=== PATIENT | male | born 1985 | race Caucasian/White ===

== ENCOUNTER 2016-07-21 05:13 | Emergency (ER) | payer OTHER ==
[2016-07-21] MEDS ORDERED: TERBUTALINE SULFATE 5 MG TAB PO ONE (05:44)
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
== END 2016-07-21 06:28 | disposition home or self-care (01) ==
DX: N48.30 Priapism, unspecified (principal)

== ENCOUNTER 2016-10-22 18:41 | Emergency (ER) | payer OTHER ==
[2016-10-22 19:09] VITALS: TEMP 97.7
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
[2016-10-22 20:12] VITALS: BP 125/73; PULSE 74; RESP 14; O2SAT 95
== END 2016-10-22 20:01 | disposition home or self-care (01) ==
DX: S52.614A Nondisplaced fracture of right ulna styloid process, initial encounter for closed fracture (principal); W05.0XXA Fall from non-moving wheelchair, initial encounter
CPT/HCPCS: L3908

== ENCOUNTER 2017-11-07 14:37 | Emergency (ER) | payer OTHER ==
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
[2017-11-07] MEDS ORDERED: NS 1,000 ML IV ONE (15:17)
[2017-11-07] MEDS ORDERED: HYDROmorphONE/DILAUDID 2 MG/ML INJ IVP ONE ×2 (15:17→17:00)
[2017-11-07 15:40] LABS: PLATELET COUNT 276 10^3/uL (150-400)
[2017-11-07] MEDS ORDERED: KETOROLAC 15 MG/1 ML SDV IVP ONE (16:04)
[2017-11-07] MEDS ORDERED: LIDOCAINE 4%/MENTHOL 1% PATCH TD ONE (16:04)
[2017-11-07] MEDS ORDERED: GABAPENTIN 300 MG CAP PO ONE (16:08)
[2017-11-07] MEDS ORDERED: CYCLOBENZAPRINE 10MG PREPACK#3 BTL TAKEHOME ONE (18:09)
[2017-11-07] MEDS ORDERED: NITROFURANTOIN 100MG PREPACK#2 BTL TAKEHOME ONE ×2 (18:09)
[2017-11-07] MEDS ORDERED: DEXAMETHASONE 4 MG TAB PO ONE (18:09)
[2017-11-07] MEDS ORDERED: OXYCODONE/APAP 5/325MG PREPACK#4 BTL TAKEHOME ONE (18:09)
[2017-11-07 18:40] VITALS: BP 129/88
[2017-11-07] MEDS ORDERED: PATCH REMOVAL 1 EA PATCH TD SCH (21:00)
== END 2017-11-07 18:41 | disposition home or self-care (01) ==
DX: R82.90 Unspecified abnormal findings in urine (principal); M54.5 Low back pain; R10.9 Unspecified abdominal pain; E86.9 Volume depletion, unspecified; N39.498 Other specified urinary incontinence; G89.29 Other chronic pain; G82.20 Paraplegia, unspecified; Z87.440 Personal history of urinary (tract) infections; Z96.9 Presence of functional implant, unspecified
CPT/HCPCS: 96374; J1170; J1885

== ENCOUNTER 2017-12-03 15:48 | Emergency (ER) | payer OTHER ==
[2017-12-03 15:56] VITALS: BP 130/66
[2017-12-03] MEDS ORDERED: oxyCODONE IR 5 MG TAB PO ONE (16:56)
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
== END 2017-12-03 18:06 | disposition home or self-care (01) ==
DX: T85.192A Other mechanical complication of implanted electronic neurostimulator of spinal cord electrode (lead), initial encounter (principal)

== ENCOUNTER 2018-04-21 22:32 | Observation (INO) | payer OTHER ==
[2018-04-21] MEDS ORDERED: NS 1,000 ML IV ONE (23:05)
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
[2018-04-21] MEDS ORDERED: fentaNYL 100 MCG/2 ML INJ IVP ONE (23:49)
[2018-04-22] MEDS ORDERED: PROMETHAZINE HCL 25 MG TAB PO PRN (01:34)
[2018-04-22] MEDS ORDERED: ACETAMINOPHEN 325 MG TAB PO PRN (01:34)
[2018-04-22] MEDS ORDERED: PROMETHAZINE HCL 25 MG/ML INJ IVP PRN (01:34)
[2018-04-22] MEDS ORDERED: LORazepam 0.5 MG TAB PO PRN (01:34)
[2018-04-22] MEDS ORDERED: POLYETHYLENE GLYCOL 3350 17 GM PKT PO PRN (01:37)
[2018-04-22] MEDS ORDERED: BISACODYL 10 MG SUPP PR PRN (01:37)
[2018-04-22] MEDS ORDERED: MAGNESIUM HYDROXIDE 30 ML UDCUP PO PRN (01:37)
[2018-04-22] MEDS ORDERED: LACTULOSE 20 GM/30 ML UDCUP PO PRN (01:37)
[2018-04-22] MEDS ORDERED: CYCLOBENZAPRINE 10 MG TAB PO PRN (01:39)
[2018-04-22] MEDS ORDERED: fentaNYL 100 MCG/2 ML INJ IVP ONE (02:26)
[2018-04-22] MEDS: SENNOSIDES/DOCUSATE SODIUM TAB PO SCH ×2 (02:46→10:43)
[2018-04-22] MEDS ORDERED: BACLOFEN 10 MG TAB PO PRN (03:26)
[2018-04-22] MEDS ORDERED: PREGABALIN 150 MG CAP PO ONE (04:30)
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
[2018-04-22] MEDS: ENOXAPARIN 40 MG/0.4 ML SYR SC SCH (10:09)
[2018-04-22] MEDS ORDERED: METHYLNALTREXONE BROMIDE 12 MG/0.6 ML INJ SC ONE (10:38)
--- NOTE | 2018-04-22 10:39 | ASMTCMCOM ---
CM Note CM Note Notes: Pt is a 32 yo M, presents with constipation. Pt has parapelegia. Lives independently, reports no concerns with care at this time. CM anticipates pt will be discharged independently. CM available if needs may arise. Plan: Independent Date Signed: 04/22/2018 10:25 AM Electronically Signed By:ROSIBEL Chen
[2018-04-22] MEDS: DIAZEPAM 5 MG TAB PO SCH ×3 (11:28→21:08)
[2018-04-22] MEDS ORDERED: IBUPROFEN 800 MG TAB PO PRN (11:44)
--- NOTE | 2018-04-22 12:42 | WOCRNPDOC ---
WOCRN Advanced Assessment Note - Skin Integrity Problem, Advanced Assess Left Lateral Foot Pressure Injury Dressing Type: Collagen (gera; per patient report), Telfa Dressing Description: Clean/Dry, Intact Exudate Amount: Scant Exudate Characteristic(s): Serosanguinous Integumentary Issue Intervention: Visualized Under Dressing Beverly Wound Tissue: Scarred, Calloused Wound Bed Constitution: Granulation Tissue (100%) Wound Edges: Epithelizing, Attached Site Measurement - Head-to-Toe Length X Width X Depth (cm): 0.8x0.6x0.2 Pressure Injury Stage: Stage 3 Pressure Injury Present on Admit: Yes Skin Integrity Problem Comment: Chronic wound that is treated at home by patient and his . No evidence of infection. Will continue use of collagen here and encourage use of offloading boots, although patient reports not liking them. Wound care will follow. Right Lateral Pedal Foot Pressure Injury Dressing Type: Open to Air Wound Bed Constitution: Stable Eschar (100%) Site Measurement - Head-to-Toe Length X Width X Depth (cm): 0.3x0.3x0 Pressure Injury Stage: Unstageable Pressure Injury Present on Admit: Yes Skin Integrity Problem Comment: No concerns. Please leave [employer]. Discussed care plan with patient and . All questions answered. Right Lateral Foot Pressure Injury Dressing Type: Open to Air Wound Bed Constitution: Healed Pressure Injury Stage: Stage 3 Pressure Injury Present on Admit: Yes Right First Toe Dressing Type: Open to Air Wound Bed Constitution: Scab Skin Integrity Problem Comment: Patient reports picking at his toe. Wound RN recommends patient to see podiatry professor if he has concerns about a hang nail rather than picking at it. Wound care will not follow this wound.
[2018-04-22] MEDS: DULoxetine 60 MG CAP PO SCH (13:07)
[2018-04-22] MEDS: ARIPiprazole 2 MG TAB PO SCH (13:07)
[2018-04-22] MEDS: BACLOFEN 10 MG TAB PO SCH ×3 (13:09→21:09)
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
[2018-04-22] MEDS: ADDERALL 10 MG TAB PO SCH (14:21)
[2018-04-22] MEDS ORDERED: BISACODYL 5 MG EC TAB PO ONE ×2 (14:21→19:15)
[2018-04-22] MEDS ORDERED: POLYETHYLENE GLYCOL 3350 17 GM PKT PO ONE ×2 (14:23→19:15)
--- NOTE | 2018-04-22 15:01 | PDCONSULT ---
Manifest Clerk Note: [email or web address] p: f: REFERRING PHYSICIAN: I was asked to see the patient in consultation by Dr. Andrew Reynoso for a chief complaint of constipation HISTORY OF PRESENT ILLNESS: Marvel Almeida is a 32-year-old male with T1 paraplegia who presents with 5 days of constipation. Typically he does rectal stimulation daily, every morning, and has a satisfactory evacuation. Over the last 5 days he has adjusted his opioid pain medication and has developed constipation. He has been unable to defecate despite rectal stimulation. This causes a tendon a 10 diffuse abdominal pain above the level of his belly button , where he can feel. He is very frustrated with his care. He wants to know for certain what ever has tried will result in a bowel movement. In the past he has tried Relistor injection and that has usually produced a bowel movement. He denies being on any consistent MiraLax, senna, bisacodyl, Movantik or any other of the irritable bowel constipation medications such as Linzess. The ER performed a soapsuds enema which did not produce a bowel movement. The patient is slightly resistant to enema therapy due to lack of improvement with the soapsuds enema. PAST MEDICAL HISTORY: Paraplegia, constipation, opioid use PAST SURGICAL HISTORY: Right wrist surgery as well as T-spine repair in 2017, 2018 spinal hardware removal, implantable nerve stimulator HOME MEDICATIONS: Relistor 450 mg p.r.n., Cymbalta 60 mg daily, baclofen 10 mg p.o. Three times daily, trazodone 50 mg at bedtime, pregabalin 200 mg three times daily, Abilify 2 mg p. O. Daily, oxycodone 10 mg Q 6 p.r.n. Pain, Valium 10 mg p.o. Three times daily INPATIENT MEDICATIONS: Trazodone 50 mg p.o. At bedtime, pre gabapentin 200 mg three times daily, robust or 12 mg subcutaneous once, enoxaparin 40 mg subcutaneous daily, Cymbalta 60 mg p.o. Daily, Valium 10 mg p.o. Three times daily, Flexeril 10 mg p.o. Three times daily p.r.n., baclofen 10 mg p.o. Three times daily, Abilify 2 mg p.o. Daily ALLERGIES: NKDA FAMILY HISTORY: no family history of colon cancer SOCIAL HISTORY: ROS: I have performed a comprehensive review of systems, which is negative except for pertinent positives and/or pertinent negatives as noted above in the HPI PHYSICAL EXAM: Vitals temperature 36.7 HR 86 20 131/74 95% on RA CONSTITUTIONAL: alert, unwell appearing MENTAL STATUS: alert, oriented to person, place and time PSYCH: Angry mood, labile EYES: pupils equal and reactive extra ocular eye movements intact EARS: right and left ear normal NOSE: normal and patent, no erythema, discharge or polyps MOUTH: mucous membranes moist, pharynx normal without lesions, Mallampati I HEAD: normal NECK: supple, no significant adenopatchy CHEST: clear to auscultation, no wheezes, rales or rhonchi, symmetric air entry CARDIOVASCULAR: normal rate, regular rhythm, normal S1,S2, no murmurs, rubs, clicks or gallops GASTROINTESTINAL: soft distended tympanic tender to light palpation. RYAN NOT PERFORMED NEUROLOGICAL: alert, paraplegia SKIN: normal coloration and turgor, no rashes, no suspicious skin lesions CURRENT DATA: IMAGING: Date 04/21/2018 X-ray Nonspecific bowel gas pattern without evidence of obstruction, moderate amount of fecal material in the colon compatible with constipation ENDOSCOPY: none previously ASSESSMENT: Marvel Almeida is a 32-year-old male with T1 paraplegia and chronic constipation which is multifactorial including neurogenic bowel, medication induced with both opioids and baclofen as well as he is not on any other bowel regimen except for rectal stimulation and p.r.n.Relistor. We discussed a clean out while in the hospital which will include 10 mg of Dulcolax followed by 32 oz of Gatorade/119 g of MiraLax. He will sit on the toilet or do rectal stimulation after each of these doses to see if we can produce a bowel movement. We discussed that he will likely need to go home on MiraLax, Dulcolax and or a daily opioid inhibitor such as Relistor or Movantik. The rectal exam was not performed today, review of his abdominal imaging does not reveal obstruction or fecal impaction. RECOMMENDATIONS: -Clean out: 10 mg dulcolax followed by 32 oz of Gatorade/119 g of MiraLax, repeat cycle every 2-3 hours if not producing a bowel movement -Patient to sit on toilet and/or perform rectal stimulation tonight after 1-2 rounds of the laxative -Discussed may need enema therapy in the future -Does not seem to need a fecal disimpaction at this time -Thank you for this consultation Sincerely, Mariola Gaspar MD [facility] could begin
[2018-04-22] MEDS: PREGABALIN 100 MG CAP PO SCH ×2 (18:40→21:08)
[2018-04-22] MEDS ORDERED: oxyCODONE IR 5 MG TAB PO ONE (21:48)
[2018-04-23] MEDS: traZODone 50 MG TAB PO SCH ×2 (03:05→21:02)
[2018-04-23] MEDS ORDERED: BISACODYL 5 MG EC TAB PO ONE (08:00)
[2018-04-23] MEDS: DIAZEPAM 5 MG TAB PO SCH ×3 (08:08→21:02)
[2018-04-23] MEDS: ENOXAPARIN 40 MG/0.4 ML SYR SC SCH (08:08)
[2018-04-23] MEDS: BACLOFEN 10 MG TAB PO SCH ×3 (08:08→21:02)
[2018-04-23] MEDS: DULoxetine 60 MG CAP PO SCH (08:08)
[2018-04-23] MEDS: ADDERALL 10 MG TAB PO SCH ×2 (08:08→15:29)
[2018-04-23] MEDS: ARIPiprazole 2 MG TAB PO SCH (08:08)
[2018-04-23] MEDS ORDERED: POLYETHYLENE GLYCOL 3350 17 GM PKT PO SCH (09:00)
--- NOTE | 2018-04-23 09:47 | SOAPPROG ---
SOAP Progress Note Assessment/Plan: Assessment: 32 year old male with T1 paraplegia, opioid use presenting with constipation with some improvement after 20 mg bisacodyl, 236 gram Miralax 64 ounces of gatorade. Stool burden in colon per last X ray not fecal impaction. Previous soap suds enema did not help Plan: 1. Change to clear liquids diet 2. 4 L Golytely - please document time when finished 3. Two tap water enemas 2 hours after drinks Golytely if no bowel movement 4. Repeat dose of 12 mg SQ of methylaltrexone today 5. If no bowel movement will order KUB to assess for stool burden 6. May require digital or colonoscopic disimpaction under sedation if no improvement after above Mariola Gaspar MD 04/23/18 10:20 Subjective: small amount of smearing stool, not a large evacuation, patient very frustrated , "why can't you do what [facility] does" Objective: Vital Signs Temp Pulse Resp BP Pulse Ox 36.4 C 75 16 113/60 95 04/23/18 07:23 04/23/18 07:23 04/23/18 07:23 04/23/18 07:23 04/23/18 07:23 04/22/18 04/23/18 04/24/18 05:59 05:59 05:59 Intake Total 1600 2730 Output Total 450 Balance 1150 2730 Physical Exam - Physical Exam General Appearance: alert Respiratory: chest non-tender, lungs clear Cardiac/Chest: regular rate, rhythm Abdomen: soft, distended, other (tender to palpation of epigastric region) Skin: normal color ICD10 Worksheet Patient Problems: Problems Problem Status Onset Constipation Acute Back pain Acute Fracture of ulnar styloid Acute Possible urinary tract infection Acute Urinary incontinence Acute
[2018-04-23] MEDS: PREGABALIN 100 MG CAP PO SCH ×3 (09:57→21:02)
[2018-04-23] MEDS ORDERED: PEG 3350/NA SULF,BICARB,CL/KCL (GAVILYTE-G) 4000 ML BTL PO ONE (09:57)
[2018-04-23] MEDS ORDERED: METHYLNALTREXONE BROMIDE 12 MG/0.6 ML INJ SC ONE (10:19)
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
[2018-04-24] MEDS: PREGABALIN 100 MG CAP PO SCH (09:04)
[2018-04-24] MEDS: ENOXAPARIN 40 MG/0.4 ML SYR SC SCH (09:04)
[2018-04-24] MEDS: DULoxetine 60 MG CAP PO SCH (09:05)
[2018-04-24] MEDS: BACLOFEN 10 MG TAB PO SCH (09:06)
[2018-04-24] MEDS: ADDERALL 10 MG TAB PO SCH (09:07)
[2018-04-24] MEDS: ARIPiprazole 2 MG TAB PO SCH (09:08)
[2018-04-24] MEDS: DIAZEPAM 5 MG TAB PO SCH (09:10)
--- NOTE | 2018-04-24 09:30 | SOAPPROG ---
SOAP Progress Note Assessment/Plan: Assessment: 32-year-old male with T1 paraplegia, opiate use, constipation s/p a clean-out after attempted 4 L of GoLYTELY. Patient only able to complete 2 L of GoLYTELY and had several bowel movements. Recommend discharge with a new bowel regimen dictated below. Plan: 1.MiraLAX 1 capful in 8 ounces once or twice a day - patient prefers once per day 2.Dulcolax 10 mg by mouth daily 3.Relistor 450 mg po once daily or Relistor 12 mg SQ daily PRN constipation - patient prefers not to do daily 4.Daily rectal stimulation for evacuation 5.Xray ordered mainly for patient satisfaction to confirm improved bowel burden 6.Discharge to home after X ray Thank you for this consultation, Mariola Gaspar MD 04/24/18 09:27 Objective: Vital Signs Temp Pulse Resp BP Pulse Ox 36.7 C 83 16 109/72 92 04/24/18 04:00 04/24/18 04:00 04/24/18 04:00 04/24/18 04:00 04/24/18 04:00 04/23/18 04/24/18 04/25/18 05:59 05:59 05:59 Intake Total 2730 900 Balance 2730 900 Physical Exam - Physical Exam General Appearance: alert, no apparent distress Respiratory: chest non-tender, lungs clear Cardiac/Chest: regular rate, rhythm Abdomen: normal bowel sounds, non-tender, soft Skin: normal color Neuro/Psych: alert ICD10 Worksheet Patient Problems: Problems Problem Status Onset Constipation Acute Back pain Acute Fracture of ulnar styloid Acute Possible urinary tract infection Acute Urinary incontinence Acute
[2018-04-24 12:15] VITALS: BP 121/71
--- NOTE | 2018-04-24 14:14 | HOSPPROG ---
Hospitalist Progress Note Assessment/Plan: 32 yo M w paraplegia, constipation home today see dc summary Subjective: moved bowels. film OK Objective: Vital Signs Temp Pulse Resp BP Pulse Ox 36.7 C 102 H 14 121/71 H 94 04/24/18 12:00 04/24/18 12:00 04/24/18 12:00 04/24/18 12:00 04/24/18 12:00 04/23/18 04/24/18 04/25/18 05:59 05:59 05:59 Intake Total 2730 900 Balance 2730 900 - Physical Exam Constitutional: no apparent distress Eyes: PERRL Ears, Nose, Mouth, Throat: moist mucous membranes Cardiovascular: regular rate and rhythym Respiratory: no respiratory distress Gastrointestinal: normoactive bowel sounds Genitourinary: no bladder fullness Skin: warm ICD10 Worksheet Patient Problems: Problems Problem Status Onset Constipation Acute Back pain Acute Fracture of ulnar styloid Acute Possible urinary tract infection Acute Urinary incontinence Acute
--- NOTE | 2018-04-24 14:29 | GDS ---
[f rep st] DISCHARGE SUMMARY DISCHARGE DIAGNOSES: 1. Severe constipation. 2. T10 paraplegia. Please see admission history and physical by Dr. Aniya Tamez. The patient presented with constipati on x5 days. This was confirmed by abdominal film. He received MiraLAX, Dulcolax, and enema with mov ement of his bowels with resolution of his constipation as seen by GI who directed the plan. Repeat abdominal films showed no evidence of constipation. He was discharged on daily Dulcolax, daily Kvng AX, p.r.n. Relistor, provided with prescriptions. Greater than 30 minutes spent on the discharge. /[id number]/MODL
--- NOTE | 2018-04-24 15:50 | ASDISCHSUM ---
Discharge Information Plan Status: Medically Cleared to Leave:04/23/2018 Discharge Date:04/24/2018 03:33 PM CM D/C Disposition:Home, Routine, Self-Care ADT D/C Disposition:Home, Routine, Self-Care Projected Discharge Date:04/24/2018 12:00 AM Transportation at D/C:Family Discharge Delay Reason: Follow-Up Date:04/24/2018 12:00 AM Discharge Slot:2 - 12:01 pm - 18:00 pm Final Diagnosis:Constipation Placement Information Patient Contact Information Contact Name:PRATIMA Relationship:Father Address:[address] Work Phone: City:[place] Alternate Phone: [facility]/Zip Code:[place] [address] Email: Financial Information Financial Class:BCOP Primary Plan Desc:[facility] Primary Plan Number:[id number] Secondary Plan Desc: Secondary Plan Number: Assessment Information [facility] CM Progress Note CM Note CM Note Notes: Pt is a 32 yo M, presents with constipation. Pt has parapelegia. Lives independently, reports no concerns with care at this time. CM anticipates pt will be discharged independently. CM available if needs may arise. Plan: Independent Date Signed: 04/22/2018 10:25 AM Electronically Signed By:ROSIBEL Chen Case Management Discharge Plan Note Case Management Discharge Discharge Order Complete? Answers: Yes Patient to Obtain Answers: via Family Medications Transportation Arranged Answers: Family/Friends Discharge Comments Notes: Patient to discharge independent to home with support of family. CM available to follow if any additional CM needs arise. Date Signed: 04/24/2018 03:49 PM Electronically Signed By:Bhavya J Pless Intervention Information
== END 2018-04-24 15:33 | disposition home or self-care (01) ==
LOC: F1N 04-22 03:18
PROVIDERS: ADMIT Family Medicine; ATTEND Internal Medicine
DX: K59.03 Drug induced constipation (principal); G82.20 Paraplegia, unspecified; E86.9 Volume depletion, unspecified; S24.103S Unspecified injury at T7-T10 level of thoracic spinal cord, sequela; V86.56XS Driver of dirt bike or motor/cross bike injured in nontraffic accident, sequela; G89.29 Other chronic pain; F11.20 Opioid dependence, uncomplicated; K59.2 Neurogenic bowel, not elsewhere classified; Z96.9 Presence of functional implant, unspecified
CPT/HCPCS: 74018; 74019; G0378; 96374; J1650; J2212; J3010

== ENCOUNTER → 2018-05-30 | Outpatient (CLI) | payer OTHER | LOC: FIMAGING 10:24 | PROVIDERS: ATTEND Internal Medicine | DX: M43.8X5 Other specified deforming dorsopathies, thoracolumbar region (principal); M48.04 Spinal stenosis, thoracic region; G82.20 Paraplegia, unspecified ==

== ENCOUNTER 2018-07-21 12:30 | Emergency (ER) | payer OTHER ==
--- NOTE | 2018-07-21 12:57 | EDPHY ---
H & P Stated Complaint: c/o fever/variation in urine color x 2 days, thinks poss uti Time Seen by Provider: 07/21/18 12:56 HPI/ROS: CHIEF COMPLAINT: Fever, change in urinary collar, more frequent self cathing HISTORY OF PRESENT ILLNESS: The patient has a history of spinal cord injury and neurogenic bladder. The patient does self cath. He presents to the ED with complaints of fever, malaise, malodorous urine and urinary spasms. The patient did have a Botox injection procedure performed to his bladder approximately week ago. The patient denies acute abdominal pain but is somewhat insensate secondary to his underlying spinal cord injury. The patient denies any cough, vomiting or diarrhea. The patient has not had a prior history of urinary tract infection. The patient denies additional acute complaints. REVIEW OF SYSTEMS: A comprehensive 10 point review of systems is otherwise negative aside from elements mentioned in the history of present illness. Source: Patient - Medical/Surgical History Hx Asthma: No Hx Chronic Respiratory Disease: No Hx Diabetes: No Hx Cardiac Disease: No Hx Renal Disease: No Hx Cirrhosis: No Hx Alcoholism: No Hx HIV/AIDS: No Hx Splenectomy or Spleen Trauma: No Other PMH: fx spine 03/2016, T-10 SPINAL CORD INJURY, spinal hardware removal 2018. r wrist fx 03/19 - Social History Smoking Status: Never smoked - Physical Exam Exam: General Appearance: Alert, no distress Eyes: Pupils equal and round no pallor or injection ENT, Mouth: Mucous membranes moist Respiratory: There are no retractions, lungs are clear to auscultation Cardiovascular: Regular rate and rhythm Gastrointestinal: Abdomen is soft and nontender, no masses, bowel sounds normal Neurological: Paraplegic secondary to spinal cord injury Skin: Warm and dry, no rashes Musculoskeletal: Neck is supple nontender Extremities: symmetrical, full range of motion Constitutional: Initial Vital Signs Temperature (C) 37.1 C 07/21/18 12:35 Heart Rate 94 07/21/18 12:35 Respiratory Rate 18 07/21/18 12:35 Blood Pressure 139/84 H 07/21/18 12:35 O2 Sat (%) 94 07/21/18 12:35 O2 Delivery Mode Room Air Allergies/Adverse Reactions: nitrofurantoin Allergy (Verified 07/21/18 12:39) Home Medications: Medication Instructions Recorded ARIPiprazole [Abilify 2 mg (*)] 2 mg PO DAILY 08/22/17 Amphet Asp and D/Amphet [Adderall 10 mg PO BID@09,14 10/22/16 10 MG (*)] Diazepam [Valium 10 MG (*)] 10 mg PO TID 10/22/16 Baclofen [Baclofen 10 mg (*)] 10 mg PO TID 04/22/18 DULoxetine [Cymbalta 60 MG (*)] 60 mg PO DAILY 04/22/18 Pregabalin [Lyrica 100mg (*)] 200 mg PO TID 04/22/18 oxyCODONE IR [Oxycodone Ir (*)] 10 mg PO Q6HRS PRN 04/22/18 traZODone [traZODONE 50MG (*)] 50 mg PO HS 04/22/18 Bisacodyl [Dulcolax] 10 mg PO DAILY #30 tablet. 04/24/18 Methylnaltrexone [place] [Relistor 12 mg SQ DAILY PRN #20 ml 04/24/18 12 mg (*)] Polyethylene Glycol 3350 [Miralax 17 gm PO DAILY #30 pkt 04/24/18 17 gm (*)] Cephalexin [Keflex] 500 mg PO QID #28 cap 07/21/18 Medical Decision Making ED Course/Re-evaluation: Patient presents the ED with evidence of urinary tract infection. The patient is nontoxic and well-appearing. He has no septic physiology. Laboratory studies are reassuring. Urine does demonstrate pyuria and hematuria. The patient received a g of IV ceftriaxone. The patient will be discharged home with Keflex. The patient has a urine culture pending at this point time. He is given customary aftercare instructions and return precautions. Differential Diagnosis: Differential diagnosis considered includes urinary tract infection, pyelonephritis, dehydration, metabolic abnormality - Data Points Laboratory Results: Laboratory Results 07/21/18 13:19 07/21/18 13:19 07/21/18 07/21/18 07/21/18 13: 13: 12:55 WBC 8.05 10^3/uL 10^3/uL (3.80-9.50) RBC 5.07 10^6/uL 10^6/uL (4.40-6.38) Hgb 15.1 g/dL g/dL (13.7-17.5) Hct 43.5 % % (40.0-51.0) MCV 85.8 fL fL (81.5-99.8) MCH 29.8 pg pg (27.9-34.1) MCHC 34.7 g/dL g/dL (32.4-36.7) RDW 13.6 % % (11.5-15.2) Plt Count 203 10^3/uL 10^3/uL (150-400) MPV 9.9 fL fL (8.7-11.7) Neut % (Auto) 77.6 % H % (39.3-74.2) Lymph % (Auto) 12.5 % L % (15.0-45.0) [place] % (Auto) 8.4 % % (4.5-13.0) Eos % (Auto) 1.1 % % (0.6-7.6) Baso % (Auto) 0.2 % L % (0.3-1.7) Nucleat RBC Rel Count 0.0 % % (0.0-0.2) Absolute Neuts (auto) 6.23 10^3/uL 10^3/uL (1.70-6.50) Absolute Lymphs (auto) 1.01 10^3/uL 10^3/uL (1.00-3.00) Absolute Monos (auto) 0.68 10^3/uL 10^3/uL (0.30-0.80) Absolute Eos (auto) 0.09 10^3/uL 10^3/uL (0.03-0.40) Absolute Basos (auto) 0.02 10^3/uL 10^3/uL (0.02-0.10) Absolute Nucleated RBC 0.00 10^3/uL 10^3/uL (0-0.01) Immature Gran % 0.2 % % (0.0-1.1) Immature Gran # 0.02 10^3/uL 10^3/uL (0.00-0.10) Sodium 137 mEq/L mEq/L (135-145) Potassium 4.3 mEq/L mEq/L (3.5-5.2) Chloride 102 mEq/L mEq/L (97-110) Carbon Dioxide 24 mEq/l mEq/l (22-31) Anion Gap 11 mEq/L mEq/L (6-14) BUN 10 mg/dL mg/dL (7-23) Creatinine 0.6 mg/dL L mg/dL (0.7-1.3) Estimated GFR > 60 Glucose 99 mg/dL mg/dL (70-100) Calcium 9.5 mg/dL mg/dL (8.5-10.4) Urine Color YELLOW Urine Appearance MODERATELY TURBID Urine pH 7.0 (5.0-7.5) Ur Specific [place] 1.017 (1.002-1.030) Urine Protein 2+ H (NEGATIVE) Urine Ketones NEGATIVE (NEGATIVE) Urine Blood 3+ H (NEGATIVE) Urine Nitrate NEGATIVE (NEGATIVE) Urine Bilirubin NEGATIVE (NEGATIVE) Urine Urobilinogen 2.0 EU H EU (0.2-1.0) Ur Leukocyte Esterase 3+ H (NEGATIVE) Urine RBC 50-182 /hpf H /hpf (0-3) Urine WBC 50-182 /hpf H /hpf (0-3) Ur Epithelial Cells NONE SEEN /lpf /lpf (NONE-1+) Urine Glucose NEGATIVE (NEGATIVE) Medications Given: Discontinued Medications Ceftriaxone Sodium/Dextrose (Rocephin 1 Gm (Premix)) 50 mls @ 100 mls/hr IV EDNOW ONE PRN Reason: Protocol Stop: 07/21/18 13:42 Last Admin: 07/21/18 13:20 Dose: 50 mls Departure - Departure Disposition: Home, Routine, Self-Care Clinical Impression: Urinary tract infection Qualifiers: Urinary tract infection type: acute cystitis Hematuria presence: with hematuria Qualified Code(s): N30.01 - Acute cystitis with hematuria Condition: Good Instructions: Urinary Tract Infection in Men (ED) Additional Instructions: 1. Please contact the emergency department in 2 days at [phone] to check the results of your urine culture. 2. Please take antibiotics as directed for the next week. 3. Please return to the ED for markedly worsening symptoms such as fever, discomfort, vomiting, lightheadedness or other concerns. Referrals: Lola Rae MD [Primary Care Provider] - As per Instructions Prescriptions: Cephalexin [Keflex] 500 mg PO QID #28 cap
[2018-07-21 13:30] LABS: PLATELET COUNT 203 10^3/uL (150-400)
[2018-07-21 14:01] VITALS: BP 120/83
== END 2018-07-21 14:01 | disposition home or self-care (01) ==
DX: N30.01 Acute cystitis with hematuria (principal)
CPT/HCPCS: 96374; J0696

== ENCOUNTER → 2018-07-21 | Outpatient (CLI) | payer OTHER | LOC: FIMAGING 12:14 | PROVIDERS: ATTEND Anesthesiology | DX: S22.079 Unspecified fracture of T9-T10 vertebra (principal); M54.6 Pain in thoracic spine | CPT/HCPCS: 78320; A9503 ==

== ENCOUNTER 2018-08-02 13:19 | Emergency (ER) | payer OTHER | END 2018-08-02 15:46 | disposition home or self-care (01) ==

== ENCOUNTER 2018-08-17 10:12 | Inpatient (IN) | payer OTHER | END 2018-08-24 13:14 | disposition home health service (06) | LOC: F3N 10:12 → F2N 19:34 ==